=== PATIENT | male | born 1990 | race Caucasian/White ===

== ENCOUNTER 2020-08-27 09:05 | Emergency (ER) | payer BC, SELFPAY ==
[2020-08-27 09:06] VITALS: BP 145/109; PULSE 79; RESP 16; TEMP 36; O2SAT 99; BMI 27.3
--- NOTE | 2020-08-27 09:12 | RAD_ITS ---
STUDY: X-RAY - RIGHT SHOULDER REASON FOR EXAM: Male, 29 years old. fell onto right shoulder during soccer TECHNIQUE: 4 view(s) of the shoulder. COMPARISON: None. FINDINGS: Normal glenohumeral articulation. There is widening of the AC joint, with displacement of the clavicle, consistent with a Type III acromioclavicular joint separation. Normal acromion. Normal humeral head and visualized proximal humerus. The soft tissue structures are unremarkable. Normal visualized pulmonary apex. RAD/Shoulder min 2 Views IMPRESSION: Grade 3 acromioclavicular joint separation. Electronically Signed: Dereck Torres MD at 9:44 EST Tel , Service support ,
--- NOTE | 2020-08-27 09:17 | ED.DCSUM_ITS ---
- ER Visit Summary Date of Service: 08/27/20 Chief Complaint: Right shoulder injury History of Present Illness: The patient is a 29 M presenting with right shoulder pain. Patient was playing soccer last night. He states he collided with another player and fell onto his right shoulder. He denies hitting his head or losing consciousness. He has tried ibuprofen at home. He complains of persistent pain right shoulder. Denies other complaints. Physical Examination: Vitals are stable. Patient is afebrile. Alert no acute distress. HEENT exam is unremarkable. Neck is nontender Lungs are clear and equal bilaterally. Heart is regular rate and rhythm. Extremities right anterior shoulder tenderness, painful range of motion, neurovascular intact distally Skin is warm and dry. No focal neurologic deficit. Remainder of exam is unremarkable. Emergency Department Course and Treatment: Right shoulder x-ray shows Grade 3 acromioclavicular joint separation. Patient was given a sling. He is advised to use NSAIDs and was given prescription for [place]. Advised to follow-up with orthopedics. Advised return to ED for worsening complaints. Disposition: Discharge home Impression: Right AC joint separation This note was generated with [employer] dictation software. It may contain incorrect words, spelling, and punctuation that were not noted in review of the chart prior to signing ED Disposition - Plan for ED Patient: Instructions: ED Sprain AC Joint Prescriptions: Hydrocodone Bitart/Apap 5-325 [[place] 5MG-325MG] 1 tab PO Q6H PRN PRN 3 Days #10 tab PRN Reason: Pain Prescription Printed Referrals: Wayne Ely MD [STAFF PHYSICIAN] -
--- NOTE | 2020-08-27 10:12 | ED.DEP ---
ED Disposition - Plan for ED Patient: Instructions: ED Sprain AC Joint Prescriptions: Hydrocodone Bitart/Apap 5-325 [[place] 5MG-325MG] 1 tab PO Q6H PRN PRN 3 Days #10 tab PRN Reason: Pain Prescription Printed Referrals: Wayne Ely MD [STAFF PHYSICIAN] -
--- NOTE | 2020-08-27 10:26 | ED.RN ---
DISCHARGE INSTRUCTIONS GIVEN TO AND REVIEWED WITH PATIENT, PATIENT DENIES QUESTIONS OR CONCERNS AND VOICES UNDERSTANDING OF DISCHARGE INSTRUCTIONS. PT AMBULATES OUT OF ROOM WITHOUT DIFFICULTY.
== END 2020-08-27 10:27 | disposition home or self-care (01) ==
LOC: ED 09:39
PROVIDERS: Emergency Provider Emergency Medicine
DX: S43.101A Unspecified dislocation of right acromioclavicular joint, initial encounter (principal); W51.XXXA Accidental striking against or bumped into by another person, initial encounter; Y93.66 Activity, soccer
CPT/HCPCS: 73030; 99283